=== PATIENT | female | born 2005 | race African-American/Black ===

== ENCOUNTER 2023-04-15 13:25 | Emergency (ER) | payer OTHER ==
[2023-04-15 14:15] VITALS: RESP 16; TEMP 97.9
--- NOTE | 2023-04-15 14:25 | ED ---
Female Urogenital HPI - General Source: patient, RN notes reviewed Mode of arrival: ambulatory Limitations: no limitations <Saul Gary - Last Filed: 04/15/23 14:24> <Benton Dill - Last Filed: 04/15/23 18:18> - General Chief complaint: Vaginal Bleeding Stated complaint: vaginal bleeding newly Time Seen by Provider: 04/15/23 14:24 - History of Present Illness Initial comments: 17-year-old female presents emergency Department chief complaint of vaginal bleeding early . Patient states she is A0 to the police that she is around 5 weeks . Patient states she started spotting a few days ago but that has increased. Patient denies any significant pain. (Saul Gary) 17-year-old A0 with a last menstrual period 04/02/2023 presented to the ED with a chief complaint of vaginal bleeding. Patient states for the past 5 days has had some intermittent vaginal spotting. Today, reports that she has some abdominal cramping which at this time patient reports is completely resolved. Patient reports that she does have an appointment scheduled with an DEVELOPER PROGRAMMER ANALYST. No lightheadedness or dizziness. No abdominal pain. No changes in bowel or bladder habits. No chest pain shortness breath. No other complaints. (Benton Dill) - Related Data Allergies Allergy/AdvReac Type Severity Reaction Status Date / Time No Known Allergies Allergy Verified 04/15/23 13:45 Review of Systems ROS Other: All systems not noted in ROS Statement are negative. <Saul Gary - Last Filed: 04/15/23 14:24> ROS Other: All systems not noted in ROS Statement are negative. <Benton Dill - Last Filed: 04/15/23 18:18> ROS Statement: Those systems with pertinent positive or pertinent negative responses have been documented in the HPI. Past Medical History Past Medical History: No Reported History History of Any Multi-Drug Resistant Organisms: None Reported Past Surgical History: No Surgical Hx Reported Past Psychological History: No Psychological Hx Reported Smoking Status: Never smoker Past Alcohol Use History: None Reported Past Drug Use History: None Reported <Saul Gayr - Last Filed: 04/15/23 14:24> General Exam Limitations: no limitations <Saul Gary - Last Filed: 04/15/23 14:24> General appearance: alert, in no apparent distress ENT exam: Present: normal exam Neck exam: Present: normal inspection Respiratory exam: Present: normal lung sounds bilaterally Cardiovascular Exam: Present: regular rate, normal rhythm GI/Abdominal exam: Present: soft (No tenderness to palpation. No rebound guarding or rigidity. No active bleeding.) External exam: Present: other (Chaperoned by Jazmine RAMIREZ. External exam unremark able. Pelvic exam shows os closed with scant amount of blood in vaginal vault. ) Neurological exam: Present: alert, altered <Benton Dill - Last Filed: 04/15/23 18:18> - General Exam Comments Initial Comments: Visual Physical Exam Vital signs reviewed General: Well-appearing, nontoxic, no acute distress. Head: Normocephalic, atraumatic Eyes: PERRLA, EOMI ENT: Airway patent Chest: Nonlabored breathing Skin: No visual rash, normal skin tone Neuro: Alert and oriented 3 Musculoskeletal: No gross abnormalities (Saul Gary) Course Vital Signs 04/15/23 13:45 Temperature 97.9 F Pulse Rate 101 H Respiratory 16 Rate Blood Pressure 129/86 O2 Sat by Pulse 99 Oximetry Medical Decision Making <Saul Gary - Last Filed: 04/15/23 14:24> - Lab Data Result diagrams: 04/15/23 15:08 <Benton Dill - Last Filed: 04/15/23 18:18> - Medical Decision Making I performed a quick note portion of this chart signed Saul HERBERT (Saul Gary) Was pt. sent in by a medical professional or institution (NEET[facility] Thomas, FOOD WRITER, urgent care, hospital, or group home...) When possible be specific @ -No Did you speak to anyone other than the patient for history (EMS, parent, family, police, friend...)? What history was obtained from this source @ -No Did you review nursing and triage notes (agree or disagree)? Why? @ -I reviewed and agree with nursing and triage notes Were old charts reviewed (outside hosp., previous admission, EMS record, old EKG, old radiological studies, urgent care reports/EKG's, group home records)? Report findings @ -No old charts were reviewed Differential Diagnosis (chest pain, altered mental status, abdominal pain women, abdominal pain men, vaginal bleeding, weakness, fever, dyspnea, syncope, headache, dizziness, GI bleed, back pain, seizure, CVA, palpatations, mental health, musculoskeletal)? @ -Differential Vaginal Bleeding: Spontaneous , threatened , molar , ectopic , bloody show, incompetent cervix, abruptioplacenta, placenta previa, uterine rupture, dysfunctional uterine bleeding, hemorrhage, uterine fibroids, this is not meant to be an all-inclusive list. EKG interpreted by me (3pts min.). @ -None X-rays interpreted by me (1pt min.). @ -None done CT interpreted by me (1pt min.). @ -None done U/S interpreted by me (1pt. min.). @ -Transvaginal ultrasound showed a heterogeneous area which is hypoechoic adjacent to or within the left ovary possibly representing corpus luteal cyst versus ectopic . What testing was considered but not performed or refused? (CT, X-rays, U/S, labs)? Why? @ -None What meds were considered but not given or refused? Why? @ -None Did you discuss the management of the patient with other professionals (professionals i.e. , PA, FOOD WRITER, lab, RT, psych nurse, web content & social media manager, mobile application development lead, teacher, correction officer city or county jail, caser in)? Give summary @ -No Was smoking cessation discussed for >3mins.? @ -No Was critical care preformed (if so, how long)? @ -No Were there social determinants of health that impacted care today? How? (Homelessness, low income, unemployed, alcoholism, drug addiction, cohen sportation, low edu. Level, literacy, decrease access to med. care, care home, rehab)? @ -No Was there de-escalation of care discussed even if they declined (Discuss DNR or withdrawal of care, Hospice)? DNR status @ -No What co-morbidities impacted this encounter? (DM, HTN, Smoking, COPD, CAD, Cancer, CVA, ARF, Chemo, Hep., AIDS, mental health diagnosis, sleep apnea, morbid obesity)? @ - Was patient admitted / discharged? Hospital course, mention meds given and route, prescriptions, significant lab abnormalities, going to OR and other pertinent info. @ -Discharge 17-year-old female last menstrual period 04/02/23 presenting to the ED after having positive test due to some vaginal bleeding for the past 3-4 days and some cramping today which is now resolved. CBC unremarkable. HCG elevated consistent with . Transvaginal ultrasound did show area to or adjacent to the left ovary possibly representing corpus they'll cyst versus ecto pic . At this time, pain well controlled. Case discussed with Dr. Rodrigez, who reported that his office would be available to follow up with the patient for repeat beta hCG within 48-72 hours if patient unable to follow up with her own OB. Patient discharged home in stable condition. Discussed strict return precautions with patient and family who verbalizes agreement. Undiagnosed new problem with uncertain prognosis? @ -No Drug Therapy requiring intensive monitoring for toxicity (Heparin, Nitro, Insulin, Cardizem)? @ -No Were any procedures done? @ -No Diagnosis/symptom? @ -Abdominal cramping/vaginal bleeding in Acute, or Chronic, or Acute on Chronic? @ -Acute Uncomplicated (without systemic symptoms) or Complicated (systemic symptoms)? @ -Uncomplicated Side effects of treatment? @ -No Exacerbation, Progression, or Severe Exacerbation? @ -No Poses a threat to life or bodily function? How? (Chest pain, USA, [place], pneumonia, PE, COPD, DKA, ARF, appy, cholecystitis, CVA, Diverticulitis, Homicidal, Suicidal, threat to staff... and all critical care pts) @ -No (Benton Dill) - Lab Data Lab Results 04/15/23 04/15/23 04/15/23 Range/Units 14:58 15:08 15:08 WBC 12.7 H (4.0-11.0) k/uL RBC 5.12 (3.80-5.40) m/uL Hgb 15.1 (11.4-16.0) gm/dL Hct 45.1 (34.0-46.0) % MCV 88.1 (80.0-100.0) fL MCH 29.5 (25.0-35.0) pg MCHC 33.4 (31.0-37.0) g/dL RDW 13.1 (11.5-15.5) % Plt Count 291 (150-450) k/uL MPV 8.0 Neutrophils % 73 % Lymphocytes % 18 % Monocytes % 5 % Eosinophils % 2 % Basophils % 1 % Neutrophils # 9.3 H (1.3-7.7) k/uL Lymphocytes # 2.3 (1.0-4.8) k/uL Monocytes # 0.6 (0-1.0) k/uL Eosinophils # 0.3 (0-0.7) k/uL Basophils # 0.1 (0-0.2) k/uL HCG, Quant 114.8 mIU/mL Urine Color Light Yellow Urine Appearance Cloudy H (Clear) Urine pH 5.5 (5.0-8.0) Ur Specific [place] 1.008 (1.001-1.035) Urine Protein Negative (Negative) Urine Glucose (UA) Negative (Negative) Urine Ketones Negative (Negative) Urine Blood Large H (Negative) Urine Nitrite Negative (Negative) Urine Bilirubin Negative (Negative) Urine Urobilinogen <2.0 (<2.0) mg/dL Ur Leukocyte Esterase Negative (Negative) Urine RBC 69 H (0-5) /hpf Urine WBC 4 (0-5) /hpf Ur Squamous Epith Cells 8 H (0-4) /hpf Urine Bacteria Rare H (None) /hpf Urine Mucus Rare H (None) /hpf Blood Type Blood Type Recheck Bld Type Recheck Status 04/15/23 Range/Units 15:08 WBC (4.0-11.0) k/uL RBC (3.80-5.40) m/uL Hgb (11.4-16.0) gm/dL Hct (34.0-46.0) % MCV (80.0-100.0) fL MCH (25.0-35.0) pg MCHC (31.0-37.0) g/dL RDW (11.5-15.5) % Plt Count (150-450) k/uL MPV Neutrophils % % Lymphocytes % % Monocytes % % Eosinophils % % Basophils % % Neutrophils # (1.3-7.7) k/uL Lymphocytes # (1.0-4.8) k/uL Monocytes # (0-1.0) k/uL Eosinophils # (0-0.7) k/uL Basophils # (0-0.2) k/uL HCG, Quant mIU/mL Urine Color Urine Appearance (Clear) Urine pH (5.0-8.0) Ur Specific [place] (1.001-1.035) Urine Protein (Negative) Urine Glucose (UA) (Negative) Urine Ketones (Negative) Urine Blood (Negative) Urine Nitrite (Negative) Urine Bilirubin (Negative) Urine Urobilinogen (<2.0) mg/dL Ur Leukocyte Esterase (Negative) Urine RBC (0-5) /hpf Urine WBC (0-5) /hpf Ur Squamous Epith Cells (0-4) /hpf Urine Bacteria (None) /hpf Urine Mucus (None) /hpf Blood Type A Positive Blood Type Recheck No Previous Record Bld Type Recheck Status [facility] ONLY Disposition <Saul Gary - Last Filed: 04/15/23 14:24> Is patient prescribed a controlled substance at d/c from ED?: No Time of Disposition: 18:18 <Benton Dill - Last Filed: 04/15/23 18:18> Clinical Impression: Vaginal bleeding Disposition: HOME SELF-CARE Condition: Good Additional Instructions: Please return to the Emergency Department if symptoms worsen or any other concerns. Follow up with DEVELOPER PROGRAMMER ANALYST within the next 48-72 hours. Referrals: None,Stated [Primary Care Provider] - 1-2 days Leonidas Rodrigez MD [STAFF PHYSICIAN] - 1-2 days
[2023-04-15 15:11] LABS: Appearance,Urine Cloudy (Clear); Bacteria,Urine Rare /hpf; Bilirubin,Urine Negative (Negative); Blood,Urine Large (Negative); Color,Urine Light Yellow; Glucose,Urine (UA) Negative (Negative); Ketones,Urine Negative (Negative); Leukocyte Esterase,Urine Negative (Negative); Mucus,Urine Rare /hpf; Nitrite,Urine Negative (Negative); PH, Urine 5.5 (5.0-8.0); Protein,Urine Negative (Negative); RBC,Urine 69 /hpf (0-5); Specific Gravity,Urine 1.008 (1.001-1.035); Squamous Epithelial Cell,Urine 8 /hpf (0-4); Urobilinogen,Urine <2.0 mg/dL (<2.0); WBC,Urine 4 /hpf (0-5)
[2023-04-15 15:22] LABS: Basophils # (A) 0.1 k/uL (0-0.2); Basophils % (A) 1 %; Eosinophils # (A) 0.3 k/uL (0-0.7); Eosinophils % (A) 2 %; HCT 45.1 % (34.0-46.0); HGB 15.1 gm/dL (11.4-16.0); Lymphocytes # (A) 2.3 k/uL (1.0-4.8); Lymphocytes % (A) 18 %; MCH 29.5 pg (25.0-35.0); MCHC 33.4 g/dL (31.0-37.0); MCV 88.1 fL (80.0-100.0); Monocytes # (A) 0.6 k/uL (0-1.0); Monocytes % (A) 5 %; Neutrophils # (A) 9.3 k/uL (1.3-7.7); Neutrophils % (A) 73 %; Platelet Count 291 k/uL (150-450); RBC 5.12 m/uL (3.80-5.40); RDW 13.1 % (11.5-15.5); WBC 12.7 k/uL (4.0-11.0)
--- NOTE | 2023-04-15 17:20 | US ---
EXAMINATION TYPE: Transabdominal DATE OF EXAM: 04/15/2023 5:05 PM COMPARISON: NONE CLINICAL INDICATION: Female, 17 years old with history of r/o ectopic; Pain on left side x 6 days. Pt states her LMP was 04/02/23. . Bleeding and cramping on left side x 6 days EXAM PERFORMED: Transvaginal (TV) and Transabdominal (TA) EXAM MEASUREMENTS: GESTATIONAL AGE / DATING Physician Established: Not yet established Dates by LMP: 04/02/23 (1 weeks/6 days) EDC: 01/07/24 Dates by First Scan: No previous this is first scan Dates by Current Scan for: No IUP seen at this time MATERNAL ANATOMY Uterus: 6.3 x 4.0 x 2.7cm Right Ovary: 3.5 x 2.4 x 1.8cm Left Ovary: 3.3 x 2.5 x 1.7cm Post CDS / Adnexa: Hyperechoic heterogeneous area seen adjacent to left ovary measuring 2.6 x 1.5 x 1 .5cm (see image 50) Presence of free fluid: Yes in cul de sac Presence of corpus luteal cyst: Possible in left ovary vs other etiology Presence of subchorionic bleed: No GESTATION / SURVEY CRL: Not seen MSD: Not seen IUP: No IUP seen at this time Date of LMP: 04/02/23 Beta HcG (if available): 114.8 Empty uterus and endometrium does not appear thickened. Hyperechoic heterogeneous area seen adjacent to left ovary IMPRESSION: No evidence of intrauterine gestational sac in this patient with a positive B-hCG. There is a heterog enous area which is hyperechoic adjacent to or within the left ovary on image 50. This is either with in the left ovary and representing corpus luteal cyst versus ectopic . Short-term follow-up in 14 days recommended as well as close clinical follow-up.
[2023-04-15 18:45] VITALS: BP 125/83; PULSE 100
== END 2023-04-15 18:26 | disposition home or self-care (01) ==
LOC: EC 13:25
DX: O46.91 Antepartum hemorrhage, unspecified, first trimester (principal); Z3A.01 Less than 8 weeks gestation of pregnancy
CPT/HCPCS: 36415; 76801; 76817; 81001; 84702; 85025; 86900; 86901; 99284

== ENCOUNTER → 2023-04-18 | Outpatient (CLI) | payer OTHER | END | disposition home or self-care (01) | LOC: LABWHC1 14:10 | PROVIDERS: ATTEND Obstetrics & Gynecology | DX: O20.0 Threatened abortion (principal); Z3A.00 Weeks of gestation of pregnancy not specified | CPT/HCPCS: 36415; 84702 ==